=== PATIENT | male | born 1995 | race Caucasian/White ===

== ENCOUNTER 2019-11-26 00:25 | Emergency (ER) | payer SELFPAY ==
--- NOTE | 2019-11-26 00:57 | EDM.PDOC ---
ED HPI GENERAL MEDICAL PROBLEM - General Chief Complaint: Laceration Stated Complaint: LT HAND INJURY Time Seen by Provider: 11/26/19 00:32 Source of Information: Reports: Patient - History of Present Illness INITIAL COMMENTS - FREE TEXT/NARRATIVE: Pt presents with a laceration to the left middle finger and multiple abrasions on both hands after repeatedly punching a door with a mirror on it. Pt denies any other complaint. Onset: Today Left hand Pain Score (Numeric/FACES): 6 - Related Data Allergies Allergy/AdvReac Type Severity Reaction Status Date / Time No Known Allergies Allergy Verified 11/26/19 00:44 Home Meds: Home Meds Cephalexin [Keflex] 500 mg PO QID 7 Days #28 capsule 11/26/19 [Rx] Sulfamethoxazole/Trimethoprim [Bactrim Ds Tablet] 1 each PO BID 7 Days #14 tablet 11/26/19 [Rx] Past Medical History HEENT History: Reports: None Psychiatric History: Reports: Anxiety - Infectious Disease History Infectious Disease History: Reports: Chicken Pox - Past Surgical History HEENT Surgical History: Reports: Other (See Below) Other HEENT Surgeries/Procedures: removal of cyst-epiglotis Social & Family History - Family History Family Medical History: Noncontributory - Tobacco Use Smoking Status *Q: Current Every Day Smoker Years of Tobacco use: 10 Packs/Tins Daily: 0.5 - Caffeine Use Caffeine Use: Reports: None - Recreational Drug Use Recreational Drug Use: No ED ROS GENERAL - Review of Systems Review Of Systems: See Below Constitutional: Reports: No Symptoms Musculoskeletal: Reports: Hand Pain Skin: Reports: Wound Psychiatric: Reports: No Symptoms ED EXAM, SKIN/RASH Exam: See Below General Appearance: Alert, WD/WN, No Apparent Distress Head: Atraumatic, Normocephalic Neck: Normal Inspection Respiratory/Chest: No Respiratory Distress, Lungs Clear, Normal Breath Sounds Cardiovascular: Regular Rate, Rhythm, No Murmur GI/Abdominal: No Distention Extremities: Other (bilateral hand swelling, abrasions and 2cm laceration on rt middile finger) Neurological: Alert, Oriented Psychiatric: Tearful (Pt tearful, but cooperative. pt has insite into his actions and is apologetic regarding his decisions) Skin: Wound/Incision ED SKIN PROCEDURES - Laceration/Wound Repair Left Digit - 3rd (Middle) Appearance: Subcutaneous, Stellate, Irregular, Clean Distal NVT: Neuro & Vascular Intact, No Tendon Injury Anesthetic Type: Local Local Anesthesia - Lidocaine (Xylocaine): 1% Plain Local Anesthetic Volume: 5cc (Topical LET also used) Skin Prep: Chlorhexidine (Hibiciens) Saline Irrigation (cc's): 100 (Wounds soaked, cleaned and copiously irrigated using hydrogen peroxide, chlorhexidine and cloraprep) Exploration/Debridement/Repair: Wound Explored, Moderate Debridement, No Foreign Material Found, Other (Xrays negative for radioopaque FB) Closed with: Sutures, Steri-Strips Lac/Wound length In cm: 3 Suture Size: 3-0 # of Sutures: 3 Suture Type: Prolene, Simple Drain Placement: No Sterile Dressing Applied: Nurse Tetanus Status Addressed: Other (See reassessment note) Complications: No Course - Vital Signs Last Recorded V/S: Last Vital Signs Temp 97.3 F 11/26/19 03:40 Pulse 108 H 11/26/19 03:40 Resp 18 11/26/19 03:40 BP 130/77 11/26/19 03:40 Pulse Ox 97 11/26/19 03:40 - Orders/Labs/Meds Orders: Active Orders 24 hr Category Date Time Status Vaccines to be Administered [RC] PER UNIT ROUTINE Care 11/26/19 06:47 Active Meds: Medications Discontinued Medications Generic Name Dose Route Start Last Admin Trade Name Percy PRN Reason Stop Dose Admin Diphtheria/Tetanus/Acell Pertussis 0.5 ml 11/26/19 06:46 Boostrix IM 11/26/19 06:47 .ONCE ONE Lidocaine HCl 10 ml 11/26/19 01:19 11/26/19 01:29 Xylocaine 1% INJECT 11/26/19 01:20 Not Given ONETIME ONE Lidocaine HCl Confirm 11/26/19 01:24 11/26/19 01:28 Xylocaine-Mpf 1% Administered 11/26/19 01:25 10 ml Dose Administration 10 ml .ROUTE .STK-MED ONE Lidocaine HCl 5 ml 11/26/19 02:40 11/26/19 03:32 Xylocaine-Mpf 1% INJECT 11/26/19 02:41 5 ml ONETIME ONE Administration Lidocaine/Tetracaine 1 ml 11/26/19 02:16 11/26/19 03:33 Let Soln TOP 11/26/19 02:17 1 ml ONETIME ONE Administration Lidocaine/Tetracaine 1 ml 11/26/19 02:22 11/26/19 03:33 Let Soln TOP 11/26/19 02:23 1 ml ONETIME ONE Administration Lidocaine/Tetracaine Confirm 11/26/19 02:22 11/26/19 02:35 Let Soln Administered 11/26/19 02:23 Not Given Dose 1 ml .ROUTE .[facility]-MED ONE - Re-Assessments/Exams Free Text/Narrative Re-Assessment/Exam: VS unremarkable and PE as above. Xrays negative for fracture or retained FB. Wounds copiously cleaned and examined. Bilateral hands neurovascularly intact with no observed evidence of tendon/nerve damage. Multiple techniques of local anesthesia used to provide pain control for repair of the complex wound repair. Wound repaired as above. Pt initially reports that Tdap is UTD, but then he is unsure. Pt discharged without tdap being given. I asked day shift wire charger to follow up with pt today for call back and ordered Tdap under this encounter. Orthopedic reevaluation recommended to the pt due to the extent of the soft tissue damage. Pt reports he will follow up. Strict return precautions discussed should symptoms worsen or any concerns arise. Departure - Departure Time of Disposition: 03:34 Disposition: Home, Self-Care 01 Condition: Good Clinical Impression: Hand laceration - Discharge Information *PRESCRIPTION DRUG MONITORING PROGRAM REVIEWED*: Not Applicable *COPY OF PRESCRIPTION DRUG MONITORING REPORT IN PATIENT SARTHAK: Not Applicable Prescriptions: Cephalexin [Keflex] 500 mg PO QID 7 Days #28 capsule Sulfamethoxazole/Trimethoprim [Bactrim Ds Tablet] 1 each PO BID 7 Days #14 tablet Instructions: Laceration Care, Adult, [id number], Sutured Wound Care, Easy-to -Read Referrals: PCP,None [Primary Care Provider] - Forms: ED Department Discharge Sepsis Event Note - Evaluation Sepsis Screening Result: No Definite Risk - Focused Exam Vital Signs: Vital Signs Temp Pulse Resp BP Pulse Ox 11/26/19 03:40 97.3 F 108 H 18 130/77 97 11/26/19 00:35 97 F 119 H 18 131/77 100 Date Exam was Performed: 11/26/19 Time Exam was Performed: 09:33 - My Orders Last 24 Hours: My Active Orders 11/26/19 06:47 Vaccines to be Administered [RC] PER UNIT ROUTINE - Assessment/Plan Last 24 Hours: My Active Orders 11/26/19 06:47 Vaccines to be Administered [RC] PER UNIT ROUTINE
[2019-11-26] MEDS ORDERED: Lidocaine 1% 10 ML MDV INJECT ONE (01:19)
--- NOTE | 2019-11-26 01:36 | CR ---
INDICATION: Punched glass TECHNIQUE: Three views right hand COMPARISON: None FINDINGS: Bones: Alignment is normal. No fractures or bone lesions. Joint spaces: Unremarkable. Soft tissues: Unremarkable. IMPRESSION: No radiopaque foreign bodies. Dictated by Brent Hussein MD @ 11/26/2019 1:34:49 AM Dictated by: Brent Hussein MD @ 11/26/2019 01:34:53 (Electronically Signed)
--- NOTE | 2019-11-26 01:38 | CR ---
INDICATION: Punched glass TECHNIQUE: Three views left hand COMPARISON: None FINDINGS: Bones: Alignment is normal. No fractures or bone lesions. Joint spaces: Unremarkable. Soft tissues: Unremarkable. IMPRESSION: No radiopaque foreign bodies. Dictated by Brent Hussein MD @ 11/26/2019 1:35:49 AM Dictated by: Brent Hussein MD @ 11/26/2019 01:35:53 (Electronically Signed)
[2019-11-26] MEDS ORDERED: Lidocaine/EPINEPHrine/Tetracaine Soln 1 ML TOP ONE ×2 (02:16→02:22)
[2019-11-26] MEDS ORDERED: Lidocaine/EPINEPHrine/Tetracaine Soln 1 ML ONE (02:22)
[2019-11-26] MEDS ORDERED: Diphtheria,Pertussis(Acell),Tetanus Vaccine 0.5 ML Syringe IM ONE (06:46)
== END 2019-11-26 03:40 | disposition home or self-care (01) ==
LOC: MW.ED 00:25
DX: S61.212A Laceration without foreign body of right middle finger without damage to nail, initial encounter (principal); F17.210 Nicotine dependence, cigarettes, uncomplicated; W26.8XXA Contact with other sharp object(s), not elsewhere classified, initial encounter
CPT/HCPCS: 12002; 73130; 99283; J2001

== ENCOUNTER 2020-01-04 03:05 | Emergency (ER) | payer SELFPAY ==
--- NOTE | 2020-01-04 03:17 | EDM.PDOC ---
ED HPI GENERAL MEDICAL PROBLEM - General Chief Complaint: Upper Extremity Injury/Pain Stated Complaint: INJURED LT HAND Time Seen by Provider: 01/04/20 03:15 Source of Information: Reports: Patient - History of Present Illness INITIAL COMMENTS - FREE TEXT/NARRATIVE: The patient is a 24-year-old male who was in senior living on Wednesday and he got angry and he punched a wall. He thinks he broke his hand because his third MCP joint and the hand is ecchymotic and painful. No other injuries. Left Hand Pain Score (Numeric/FACES): 5 - Related Data Allergies Allergy/AdvReac Type Severity Reaction Status Date / Time No Known Allergies Allergy Verified 01/04/20 03:15 Home Meds: Home Meds . [No Known Home Meds] 01/04/20 [History] Past Medical History HEENT History: Reports: None Psychiatric History: Reports: Anxiety - Infectious Disease History Infectious Disease History: Reports: Chicken Pox - Past Surgical History HEENT Surgical History: Reports: Other (See Below) Other HEENT Surgeries/Procedures: removal of cyst-epiglotis Social & Family History - Family History Family Medical History: Noncontributory - Caffeine Use Caffeine Use: Reports: None Review of Systems - Review of Systems Review Of Systems: See Below (Positive for left hand pain) ED EXAM, GENERAL - Physical Exam Exam: See Below Free Text/Narrative:: Constitutional: No acute distress, Non-toxic appearance. HEENT: Normocephalic, Atraumatic, EOMI Neck: Normal range of motion, No stridor, trachea midline Respiratory: No respiratory distress, No tachypnea Cardiovascular: Deferred Gastrointestinal: Deferred Genital / Urinary: Deferred Musculoskeletal: All four extremities present, the left elbow and wrist are unremarkable, the patient has some dorsal abrasions over the third MCP joint and the third MCP joint is ecchymotic and swollen and tender as well as the dorsal aspect of the patient's left hand. Hand is neurovascular intact. FROM without instability of the joints. Back: FROM Integument: Warm, Dry, Color is ethnicity appropriate, No rash. Neuro: Alert, Awake, No focal deficits noted Psych: Affect, Judgement, mood normal Course - Vital Signs Text/Narrative:: X-ray of the right hand 3 view was reviewed and interpreted by me -no fractures , no dislocation or any acute pathology I talked to the patient that his injuries appear to be soft tissue injuries most likely secondary to hospital he a partially ruptured capsule on the MCP joint, possibly even some bone bruising, etc. Symptomatic treatment is appropriate and in time he should heal fine. Last Recorded V/S: Last Vital Signs Temp 36.6 C 01/04/20 03:09 Pulse 122 H 01/04/20 03:09 Resp 16 01/04/20 03:09 BP 131/92 H 01/04/20 03:09 Pulse Ox 98 01/04/20 03:09 - Orders/Labs/Meds Orders: Active Orders 24 hr Category Date Time Status Hand Comp Min 3V Lt [CR] Stat Exams 01/04/20 03:14 Taken Departure - Departure Time of Disposition: 03:40 Disposition: Home, Self-Care 01 Condition: Good Clinical Impression: Contusion of left hand, initial encounter - Discharge Information *PRESCRIPTION DRUG MONITORING PROGRAM REVIEWED*: Not Applicable *COPY OF PRESCRIPTION DRUG MONITORING REPORT IN PATIENT SARTHAK: Not Applicable Referrals: PCP,None [Primary Care Provider] - Forms: ED Department Discharge Additional Instructions: Ice, ibuprofen and Tylenol for discomfort. Gradually increase your activity as tolerated. It might take several weeks for your hand to fully heal. Sepsis Event Note - Evaluation Sepsis Screening Result: No Definite Risk - Focused Exam Vital Signs: Vital Signs Temp Pulse Resp BP Pulse Ox 01/04/20 03:09 36.6 C 122 H 16 131/92 H 98 Date Exam was Performed: 01/04/20 Time Exam was Performed: 03:39 - My Orders Last 24 Hours: My Active Orders 01/04/20 03:14 Hand Comp Min 3V Lt [CR] Stat - Assessment/Plan Last 24 Hours: My Active Orders 01/04/20 03:14 Hand Comp Min 3V Lt [CR] Stat
--- NOTE | 2020-01-04 03:50 | CR ---
INDICATION: Hand injury from trauma, punched wall TECHNIQUE: Hand radiograph 3 views left COMPARISON: 11/26/2019 FINDINGS: Bone: No acute fractures or aggressive bone lesions are identified. Joint: The carpal and metacarpal-phalangeal joints are unremarkable in appearance. The interphalangeal joints are normal in appearance. Soft tissue: Unremarkable. No radiopaque foreign bodies are seen. IMPRESSION: 1. No acute osseous injuries or abnormalities are noted. Dictated by: Isaac Cates MD @ 01/04/2020 03:49:41 (Electronically Signed)
== END 2020-01-04 03:50 | disposition home or self-care (01) ==
LOC: MW.ED 03:05
DX: S60.222A Contusion of left hand, initial encounter (principal); W22.01XA Walked into wall, initial encounter; Y92.149 Unspecified place in prison as the place of occurrence of the external cause
CPT/HCPCS: 73130-26-LT; 73130-LT; 99283-25

== ENCOUNTER 2022-05-17 01:58 | Emergency (ER) | payer SELFPAY ==
[2022-05-17] MEDS ORDERED: Lidocaine 1% 5 ML VIAL INJECT ONE (02:13)
[2022-05-17] MEDS ORDERED: Octyl 2-Cyanoacrylate 1 Tube TOP ONE (03:29)
[2022-05-17] MEDS ORDERED: Ibuprofen 600 MG Tab PO ONE (04:39)
== END 2022-05-17 05:06 | disposition home or self-care (01) ==
LOC: MW.ED 01:58
DX: S01.81XA Laceration without foreign body of other part of head, initial encounter (principal); W01.198A Fall on same level from slipping, tripping and stumbling with subsequent striking against other object, initial encounter
CPT/HCPCS: 12014; 70486; 71045; 99284; A9270